=== PATIENT | female | born 2000 | race Caucasian/White ===

== ENCOUNTER 2022-02-13 09:42 | Outpatient (CLI) | payer OTHER, SELFPAY ==
[2022-02-12 16:06] LABS: Protein, Urine (Random) 6.5 mg/dL (<11.9); Protein:Creat Ratio 136 mg/g CRE (0-200)
[2022-02-12 16:11] LABS: Amphetamine Urine VISTA NEGATIVE (<1000 ng/mL); Barbiturate Urine VISTA NEGATIVE (< 200 ng/mL); Benzodiazepine Urine VISTA NEGATIVE (< 200 ng/mL); Cocaine Urine VISTA NEGATIVE (< 300 ng/mL); Ecstacy Urine VISTA NEGATIVE (< 500 ng/mL); Methadone Urine VISTA NEGATIVE (< 300 ng/mL); PCP Urine VISTA NEGATIVE (< 25 ng/mL); THC Urine VISTA NEGATIVE (< 50 ng/mL); Vista UDS pH Range 6
[2022-02-14 22:07] LABS: Chlamydia By Nucleic Acid AMP Negative (Negative)
[2022-02-14 22:14] LABS: Gonococcus By Nucleic Acid AMP Negative (Negative)
== END 2022-02-13 23:59 | disposition home or self-care (01) ==
LOC: LABSPEC 09:43
PROVIDERS: Visit Provider Obstetrics & Gynecology
DX: O09.299 Supervision of pregnancy with other poor reproductive or obstetric history, unspecified trimester (principal); Z3A.00 Weeks of gestation of pregnancy not specified
CPT/HCPCS: 80307; 82570; 84156; 87086; 87088; 87491; 87591

== ENCOUNTER → 2022-03-12 | Outpatient (CLI) | payer OTHER, SELFPAY ==
[2022-03-12 11:29] LABS: Absolute Lymphocyte Count 2.43 X10^3/uL (0.83-4.51); Absolute Neutrophil Count 6.6 X10^3/uL (2.0-7.7); Basophil# 0.04 X10^3/uL; Basophil% 0.4 % (0-1); Eosinophil# 0.13 X10^3/uL; Eosinophils% 1.3 % (0-5); Lymphocyte # 2.43 X10^3/ul (0.83-4.51); Lymphocyte % 24.7 % (19-41); Mean Corp Hgb Conc 32.6 g/dL (32-36); Mean Corpuscular Hgb 26.9 pg (27.0-32.0); Mean Corpuscular Volume 82.5 fL (81-99); Mean Platelet Vol. 9.4 fl (6.2-12.0); Monocyte% 6.1 % (0-10); NRBC Flagged by Analyzer 0 % (0-5); Neutrophil # 6.59 X10^3/uL (2.7-7.7); Neutrophil % 67.1 % (47-70); Platelet Count 294 K/mm3 (150-450); RBC Distribution Width CV 14.9 % (11.6-14.6); RBC Distribution Width SD 45.6 fl (35.1-43.9); Red Blood Count 5.21 M/mm3 (4.2-5.4); White Blood Count 9.8 K/mm3 (4.4-11.0)
[2022-03-12 11:58] LABS: ALB/GLOB Ratio 0.9 RATIO (0.9-2.4); AST(SGOT) 10 U/L (15-37); Alanine Aminotransfer ALT/SGPT 17 U/L (13-56); Albumin, Serum 3.4 g/dL (3.2-5.0); Alkaline Phosphatase 64 U/L (45-117); Anion Gap 9 (5-15); BUN 10 mg/dL (7-18); Calcium,Total 9.2 mg/dL (8.5-10.1); Chloride 108 mmol/L (98-107); Creatinine, Serum 0.66 mg/dL (0.55-1.02); EST Glomerular Filtration Rate 119 mL/min (>60); Est Glom Filt Rate - Afr Amer 143 mL/min (>60); Globulin 3.9 g/dL (2.2-4.2); Glucose 102 mg/dL (74-106); Glucose Challenge Gest 1H 50g 102 mg/dL (70-140); Potassium 3.4 mmol/L (3.5-5.1); Protein, Total 7.3 g/dL (6.4-8.2); Sodium Level 139 mmol/L (136-145)
[2022-03-12 12:25] LABS: NATERA MAILED SPECIMEN
[2022-03-12 12:36] LABS: HIV - WCH Non-Reactive (Nonreactive); Hepatitis B Surface Antigen Non-Reactive (Nonreactive); Hepatitis C Antibody Non-Reactive (Nonreactive); Rubella IgG Reactive (Nonreactive); Syphilis Antibodies Non-reactive
== END | disposition home or self-care (01) ==
LOC: PAVLAB 10:37
PROVIDERS: Referring Provider Obstetrics & Gynecology; Visit Provider Obstetrics & Gynecology
DX: Z34.81 Encounter for supervision of other normal pregnancy, first trimester (principal)
CPT/HCPCS: 36415; 80053; 82950; 85025; 86703; 86762; 86780; 86803; 86850; 86900; 86901; 87340

== ENCOUNTER → 2022-05-09 | Outpatient (CLI) | payer OTHER, SELFPAY ==
[2022-05-09 11:15] LABS: Protein, Urine (Random) 26.9 mg/dL (<11.9); Protein:Creat Ratio 167 mg/g CRE (0-200)
== END | disposition home or self-care (01) ==
PROVIDERS: Visit Provider Nurse Practitioner Women's Health
DX: O09.299 Supervision of pregnancy with other poor reproductive or obstetric history, unspecified trimester (principal)
CPT/HCPCS: 82570; 84156

== ENCOUNTER → 2022-06-27 | Outpatient (CLI) | payer OTHER, SELFPAY ==
[2022-06-27 08:56] LABS: Absolute Lymphocyte Count 2.68 X10^3/uL (0.83-4.51); Absolute Neutrophil Count 8.4 X10^3/uL (2.0-7.7); Basophil# 0.04 X10^3/uL; Basophil% 0.3 % (0-1); Eosinophil# 0.13 X10^3/uL; Eosinophils% 1.1 % (0-5); Hematocrit 35.1 % (37-47); Lymphocyte # 2.68 X10^3/ul (0.83-4.51); Lymphocyte % 22.4 % (19-41); Mean Corp Hgb Conc 34.2 g/dL (32-36); Mean Corpuscular Hgb 28.8 pg (27.0-32.0); Mean Corpuscular Volume 84.4 fL (81-99); Mean Platelet Vol. 8.9 fl (6.2-12.0); Monocyte# 0.59 X10^3/uL; Monocyte% 4.9 % (0-10); NRBC Flagged by Analyzer 0 % (0-5); Neutrophil # 8.36 X10^3/uL (2.7-7.7); Neutrophil % 70.1 % (47-70); Platelet Count 287 K/mm3 (150-450); Red Blood Count 4.16 M/mm3 (4.2-5.4); White Blood Count 11.9 K/mm3 (4.4-11.0)
[2022-06-27 09:28] LABS: Glucose Challenge Gest 1H 50g 164 mg/dL (70-140)
== END | disposition home or self-care (01) ==
LOC: PAVLAB 08:28
PROVIDERS: Referring Provider Nurse Practitioner Women's Health; Visit Provider Nurse Practitioner Women's Health
DX: Z34.90 Encounter for supervision of normal pregnancy, unspecified, unspecified trimester (principal)
CPT/HCPCS: 36415; 82950; 85025

== ENCOUNTER → 2022-07-05 | Outpatient (CLI) | payer OTHER, SELFPAY ==
[2022-07-05 07:44] LABS: Glucose GTT-Gestation. Fasting 73 mg/dL (<105)
[2022-07-05 08:51] LABS: Glucose GTT-Gestational 1 Hr 185 mg/dL (<190)
[2022-07-05 10:07] LABS: Glucose GTT-Gestational 2 Hr 184 mg/dL (<165)
[2022-07-05 10:53] LABS: Glucose GTT-Gestational 3 Hr 138 L (<145)
== END | disposition home or self-care (01) ==
LOC: LAB 06:58
PROVIDERS: Referring Provider Nurse Practitioner Women's Health; Visit Provider Nurse Practitioner Women's Health
DX: Z13.1 Encounter for screening for diabetes mellitus (principal)
CPT/HCPCS: 36415; 82951; 82952

== ENCOUNTER 2022-07-18 15:25 | Outpatient (CLI) | payer OTHER, SELFPAY ==
[2022-07-18 15:45] VITALS: BP 120/84; PULSE 105; TEMP 37
[2022-07-18 15:51] VITALS: BMI 34.2
[2022-07-18 16:07] LABS: Glucose, Dipstick Normal (Normal); Ketone-Dipstick Negative (Negative); Leukocyte Esterase-Dipstick 100 /ul (Negative); Nitrite-Dipstick Negative (Negative); Occult Blood-Urine Negative /ul (Negative); Protein-Dipstick Negative (Negative); Urine Bilirubin Dipstick Negative (Negative); Urine Urobilinogen Normal (Normal)
[2022-07-18 16:16] LABS: Color, Urine Yellow (Yellow); Urine Clarity Clear (Clear)
--- NOTE | 2022-07-18 17:16 | US_ITS ---
STUDY: ULTRASOUND OF THE FEMALE PELVIS - LIMITED REASON FOR EXAM: Female, 21 years old left quadrant pain. R/O complications of L ovary. -- uterus. -- -- OB does not want evaluation of fetus, only b/l adnexa TECHNIQUE: Transabdominal TECHNICAL QUALITY: Adequate. COMPARISON: None. FINDINGS: Gravid uterus not studied as per request. The right ovary measures 2.2 x 2.3 x 2.9 cm. There is no right ovarian cyst or ovarian mass. There is no visualized right adnexal mass or complex lesion. There is normal arterial and normal venous vascularity. The left ovary measures 3.1 x 2.4 x 3 cm. There is no left ovarian cyst or ovarian mass. There is no visualized left adnexal mass or complex lesion. There is normal arterial and normal venous vascularity. There is no fluid in the cul-de-sac. US/Pelvic (Non ) IMPRESSION: Limited study of the pelvis demonstrating normal bilateral ovaries Electronically Signed: Raimundo Goodwin MD at 19:24 EDT ,
--- NOTE | 2022-07-19 10:25 | OB.TRI.HP_ITS ---
HPI - General General Date of Admission: 07/18/22 HPI Narrative MARYSOL TAPIA, is a 21 F who presents to L&D at 30 weeks for left side pain from left of umbilicus and left upper side pain. She denies lof, vaginal bleeding, or dec fm. She thinks that she is having some staci sapp contr actions. Maternal Data Information KIRSTEN Calculator Estimated Delivery Date Method Current WG Current Estimate 09/26/22 Ultrasound #1 30w 1d Other Estimates 09/21/22 LMP (Certain) 30w 6d PFSH PFSH Home Medications prenat.vits,leroy,gym-[id number]-[id number] 1 tab PO DAILY 01/29/22 [History Last Taken Unknown] aspirin 81 mg chewable tablet 81 mg PO DAILY 07/05/22 [History Last Taken Unknown] blood sugar diagnostic (Accu-Chek Guide test strips) 07/12/22 [History Last Taken Unknown] blood-glucose meter (Accu-Chek Guide Me Glucose Meter) 07/12/22 [History Last Taken Unknown] docusate sodium 100 mg capsule (Colace) 100 mg PO BID 07/12/22 [History Last Taken Unknown] Allergy/AdvReac Type Severity Reaction Status Date / Time No Known Allergies Allergy Verified 07/12/22 10:48 Family History Father Diabetes Brother Cancer hogkins lymphoma Grandmother Diabetes Grandfather CVA (cerebral vascular accident) Myocardial infarction ALS (amyotrophic lateral sclerosis) Social History adopted: No household members: spouse and children number of children: 1 current occupational status: unemployed current occupation: [employer] pets and animals: No Smoking Status: Never smoker alcohol intake: never substance use type: does not use seatbelt use: always do you feel safe at home: Yes additional social history: Spouse:Lb- manager distribution center in [place] patient is a sahm History 2 Elective abortions Hx Para 1 Spontaneous abortions Hx # Term Pregnancies Ectopic pregnancies Hx # Pregnancies Multiple births # of living children Past Pregnancies Del. 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 Problem list reviewed and updated with the most current plan of care details and appropriate orders placed. Relevant counseling for the gestational age provided. Continue routine care and follow up unless otherwise noted in visit notes/problem list details OB Flowsheet Initial Weight: Not Recorded Date -?-?-?-?-?-?-?-?-?-?-?-?- EGA Weight BP Urine Prot -?-?-?-?-?-?-?-?-?-?-?-?- Glucose FHR FuHt Pres Dilation -?-?-?-?-?-?-?-?-?-?-?-?- Effaced St Visit Note 02/12/22 -?-?-?-?-?-?-?-?-?-?-?-?- 7w 5d 211 lb 110/88 -?-?-?-?-?-?-?-?-?-?-?-?- 160 -?-?-?-?-?-?-?-?-?-?-?-?- JV-CRL off by mo re then 5 days. new kirsten 09/26/22 pt had severe pre-e and delivered at 3 week early. She will start baby asa and have baseline pr:cr ration collected. 03/12/22 -?-?-?-?-?-?-?-?-?-?--?-?- 11w 5d 208 lb 6 oz 130/88 Nega tive -?-?-?-?-?-?-?-?-?-?-?-?- Negative 160 -?-?-?-?-?-?-?-?-?-?-?-?- JV- no cramping, bleeding or complaints. nipt drawn today. normal early glucola 04/11/22 -?-?-?-?-?-?-?-?-?-?-?-?- 16w 0d 210 lb 2 oz 118/72 Nega tive -?-?-?-?-?-?-?-?-?-?-?-?- Negative 158 -?-?-?-?-?-?-?-?-?-?-?-?- MH-No VB or cram ping. Denies concerns. Anatomy US 05/0305/09/22 -?-?-?-?-?-?-?-?-?-?-?-?- 20w 0d 208 lb 4 oz 126/78 Trac e -?-?-?-?-?-?-?-?-?-?-?-?- Negative 143 -?-?-?-?-?-?-?-?-?-?-?-?- MH-No VB, LOF. F M noted. States yesterday was sitting on floor painting and had slight headache, BP 138/89 and briefly saw sparkles and relieved with rest and fluids. Urine sent PC ratio. Reviewed home monitoring 06/05/22 -?-?-?-?-?-?-?-?-?-?-?-?- 23w 6d 211 lb 2 oz 122/80 Nega tive -?-?-?-?-?-?-?-?-?-?-?-?- Negative 148 -?-?-?-?-?-?-?-?-?-?-?-?- MH-No VB, LOF. G ood FM. Denies concerns. 07/05/22 -?-?-?-?-?-?-?-?-?-?-?-?- 28w 1d 210 lb 126/72 Negative -?-?-?-?-?-?-?-?-?-?-?-?- Negative 145 29 -?-?-?-?-?-?-?-?-?-?-?-?- SM- reviewed lab results. no vb lof good fm no regular ctx 07/16/22 -?-?-?-?-?-?-?-?-?-?-?-?- 29w 5d 208 lb 108/82 Negative -?-?-?-?-?-?-?-?-?-?-?-?- Negative 145 30 -?-?-?-?-?-?-?-?-?-?-?-?- SM- no vb lof go od fm no regular ctx BS reviewed and nl ROS Constitutional Constitutional: Reports systems reviewed and no addt'l complaints, except as documented Gastrointestinal Gastrointestinal: Denies bloating, constipation, cramping, diarrhea, nausea or vomiting Genitourinary Genitourinary: Reports other Details: Denies vaginal odor, vaginal bleeding, or vaginal discharge ; Denies difficulty urinating or flank pain Physical Exam HEENT normocephalic Resp normal respiratory effort and normal air movement no CVA tenderness Manual OB Exam: other closed cervix per nurse exam Uterus Palpation: Negative for uterus tender Amniotic Fluid: other Extremity normal to inspection General Extremity: edema bilateral (trace ) NST FHR Rate Baby A Baseline: 140 Variability:: Moderate Accelerations:: 15 x 15 Decelerations:: None NST Reactive:: Yes FHR Category:: Category I Assessment & Plan (1) Gestational diabetes mellitus (GDM): COMMENT: diet controlled. s/pp endocrine cs. (2) Short interval between pregnancies affecting , antepartum: COMMENT: Del 06/2021 in [facility], TDAP 04/25/21 (3) Supervision of high risk , antepartum: COMMENT: PRR KIRSTEN: 09/21/22, girl, Suzy PC:Sergey Spouse:Lb (4) History of pre-eclampsia in prior , currently : COMMENT: IOL at 37 wk/Kash Elizabeth Pre E labs at [facility] baby asa daily Urine P/C ration normal 05/09/22 (5) : QUALIFIERS: Weeks of gestation: 29 weeks Qualified Code(s): Z3A.29 - 29 weeks gestation of COMMENT: NIPT low risk, carrier neg. . Anatomy US normal PLAN: Plan normal pelvic ultrasound and no signs of labor. suspect musculoskeletal pain an staci sapp contractions Charges/Coding Multi Select Codes Visit Charges Office Visit/Consults: 43668 OV L3 Est Urinary/Genital Urinary/Genital CPT Codes: 15184-68 non-stress test Interp
== END 2022-07-18 18:18 | disposition home or self-care (01) ==
LOC: WPOUT 15:31 → WP 15:32
PROVIDERS: Visit Provider Obstetrics & Gynecology
DX: O24.419 Gestational diabetes mellitus in pregnancy, unspecified control (principal); Z3A.29 29 weeks gestation of pregnancy; O26.23 Pregnancy care for patient with recurrent pregnancy loss, third trimester
CPT/HCPCS: 59025; 59050; 76856; 81002; 87086; 87088; 93976; 99218; G0378

== ENCOUNTER → 2022-08-13 | Outpatient (CLI) | payer OTHER, SELFPAY | END | disposition home or self-care (01) | LOC: LABSPEC 12:12 | PROVIDERS: Visit Provider Registered Nurse | DX: O23.40 Unspecified infection of urinary tract in pregnancy, unspecified trimester (principal) | CPT/HCPCS: 87086; 87088 ==

== ENCOUNTER 2022-08-27 13:40 | Inpatient (IN) | payer OTHER, SELFPAY ==
[2022-08-27] VITALS (55 sets, daily range): BP systolic 112–144; BP diastolic 63–92; PULSE 78–113; TEMP 36.4–37.1; O2SAT 94–100; BMI 34.8
--- NOTE | 2022-08-27 10:51 | NURSING ---
Dr Loaiza at bedside examing pt. orders given
[2022-08-27 11:06] LABS: Hematocrit 40.9 % (37-47); Hemoglobin 13.2 g/dL (12.0-15.0); Mean Corp Hgb Conc 32.3 g/dL (32-36); Mean Corpuscular Hgb 26.1 pg (27.0-32.0); Mean Corpuscular Volume 80.8 fL (81-99); Mean Platelet Vol. 9.4 fl (6.2-12.0); Platelet Count 258 K/mm3 (150-450); RBC Distribution Width SD 43.2 fl (35.1-43.9); Red Blood Count 5.06 M/mm3 (4.2-5.4); White Blood Count 12.2 K/mm3 (4.4-11.0)
[2022-08-27] MEDS: 0.9% Saline Lock 10 ML Syringe IV (12:05)
[2022-08-27 12:47] LABS: Protein, Urine (Random) 21.5 mg/dL (<11.9); Protein:Creat Ratio 342 mg/g CRE (0-200)
[2022-08-27 13:20] LABS: AST(SGOT) 13 U/L (15-37); Alanine Aminotransfer ALT/SGPT 21 U/L (13-56); Creatinine, Serum 0.77 mg/dL (0.55-1.02); EST Glomerular Filtration Rate 100 mL/min (>60); Est Glom Filt Rate - Afr Amer 121 mL/min (>60); Uric Acid 6.8 mg/dL (2.6-6.0)
--- NOTE | 2022-08-27 13:56 | HP.PCM.OB_ITS ---
HPI - General General Date of Admission: 08/27/22 HPI Narrative MARYSOL TAPIA, is a 21 y/o @ 35 weeks 5 days who presents to L&D with the complaint of visual changes and on and off headaches. She has a history of pre- eclampsia and states that she feels the same way she felt last when she was admitted for pre-eclampsia. She denies right upper quadrant pain or swelling in extremities. Her pr: cr ratio was 340 and uric acid was elevated at 6.8, however blood pressures have been trending down from mas 145/92 in office down to 112/70's with rest on L&D. Based on her severe features of headaches and visual changes + proteinuria and labile bp's the decision was made to induce labor. This was discussed with MFCari and with the patient Maternal Data Information KIRSTEN Calculator Estimated Delivery Date Method Current WG Current Estimate 09/26/22 Ultrasound #1 35w 5d Other Estimates 09/21/22 LMP (Certain) 36w 3d PFSH PFSH Home Medications prenat.vits,leroy,[id number]-rezs-abhys 1 tab PO DAILY 01/29/22 [History Last Taken 08/26/22 21:00] aspirin 81 mg chewable tablet 81 mg PO DAILY 07/05/22 [History Last Taken 08/26/22 21:00] blood sugar diagnostic (Accu-Chek Guide test strips) 07/12/22 [History Last Taken Unknown] blood-glucose meter (Accu-Chek Guide Me Glucose Meter) 07/12/22 [History Last Taken Unknown] docusate sodium 100 mg capsule (Colace) 100 mg PO BID 07/12/22 [History Last Taken 08/26/22 21:00] Allergy/AdvReac Type Severity Reaction Status Date / Time No Known Allergies Allergy Verified 08/27/22 10:42 Family History Father Diabetes Brother Cancer hogkins lymphoma Grandmother Diabetes Grandfather CVA (cerebral vascular accident) Myocardial infarction ALS (amyotrophic lateral sclerosis) Social History adopted: No household members: spouse and children number of children: 1 current occupational status: 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 pain management options preferred: epidural cut cord/dad catch: will cut the cord :yes PP control planned: condoms/withdraw discussed possible routes of delivery and associated risks: [] special requests: [] Plans Covid status: discussed Flu vaccine: discussed Tdap vaccine: given Rhogam: na LARC form signed: completed. movement and labor precautions reviewed. Problem list reviewed and updated with the most current plan of care details and appropriate orders placed. Relevant counseling for the gestational age provided. Continue routine care and follow up unless otherwise noted in visit notes/problem list details OB Flowsheet Initial Weight: Not Recorded Date -?-?-?-?-?-?-?-?-?-?-?-?- EGA Weight BP Urine Prot -?-?-?-?-?-?-?-?-?-?-?-?- Glucose FHR FuHt Pres Dilation -?-?-?-?-?-?-?-?-?-?-?-?- Effaced St Visit Note 02/12/22 -?-?-?-?-?-?-?-?-?-?-?-?- 7w 5d 211 lb 110/88 -?-?-?-?-?-?-?-?-?-?-?-?- 160 -?-?-?-?-?-?-?-?-?-?-?-?- JV-CRL off by mo re then 5 days. new kirsten 09/26/22 pt had severe pre-e and delivered at 3 week early. She will start baby asa and have baseline pr:cr ration collected. 03/12/22 -?-?-?-?-?-?-?-?-?-?-?-?- 11w 5d 208 lb 6 oz 130/88 Nega tive -?-?-?-?-?-?-?-?-?-?-?-?- Negative 160 -?-?-?-?-?-?-?-?-?-?-?-?- JV- no cramping, bleeding or complaints. nipt drawn today. normal early glucola 04/11/22 -?-?-?-?-?-?-?-?-?-?-?-?- 16w 0d 210 lb 2 oz 118/72 Nega tive -?-?-?-?-?-?-?-?-?-?-?-?- Negative 158 -?-?-?-?-?-?-?-?-?-?-?-?- MH-No VB or cram ping. Denies concerns. Anatomy US 05/0305/09/22 -?-?-?-?-?-?-?-?-?-?-?-?- 20w 0d 208 lb 4 oz 126/78 Trac e -?-?-?-?-?-?-?-?-?-?-?-?- Negative 143 -?-?-?-?-?-?-?-?-?-?-?-?- MH-No VB, LOF. F M noted. States yesterday was sitting on floor painting and had slight headache, BP 138/89 and briefly saw sparkles and relieved with rest and fluids. Urine sent PC ratio. Reviewed home monitoring 06/05/22 -?-?-?-?-?-?-?-?-?-?-?-?- 23w 6d 211 lb 2 oz 122/80 Nega tive -?-?-?-?-?-?-?-?-?-?-?-?- Negative 148 -?-?-?-?-?-?-?-?-?-?-?-?- -No VB, LOF. G ood FM. Denies concerns. 07/05/22 -?-?-?-?-?-?-?-?-?-?-?-?- 28w 1d 210 lb 126/72 Negative -?-?-?-?-?-?-?-?-?-?-?-?- Negative 145 29 -?-?-?-?-?-?-?-?-?-?-?-?- SM- reviewed lab results. no vb lof good fm no regular ctx 07/16/22 -?-?-?-?-?-?-?-?-?-?-?-?- 29w 5d 208 lb 108/82 Negative -?-?-?-?-?-?-?-?-?-?-?-?- Negative 145 30 -?-?-?-?-?-?-?-?-?-?-?-?- SM- no vb lof go od fm no regular ctx BS reviewed and nl 08/01/22 -?-?-?-?-?-?-?-?-?-?-?-?- 32w 0d 206 lb 122/84 Negative -?-?-?-?-?-?-?-?-?-?-?-?- Negative 155 32 33 -?-?-?-?-?-?-?-?-?-?-?-?- JV- no lof vagin al bleeding, or dec fm. glucose levels well controlled. States have had 4 spikes of 130's needs uti DIOMEDES next visit. 08/13/22 -?-?-?-?-?-?-?-?-?-?-?-?- 33w 5d 206 lb 6 oz 122/82 Nega tive -?-?-?-?-?-?-?-?-?-?-?-?- Negative 160 33 Cephalic -?-?-?-?-?-?-?-?-?-?-?-?- LC- no lof,vb,ct x. active fetus. urine cx repeated. growth scan ordered for 36 weeks. glucose well controlled on diet. tdap today. 08/27/22 -?-?-?-?-?-?-?-?-?-?-?-?- 35w 5d 209 lb 133/92 Negative -?-?-?-?-?-?-?-?-?-?-?-?- Negative 140 35 Breech -?-?--?-?-?-?-?-?-?-?-?-?- LC-no lof,vb,ctx . having headache x2 weeks, worsened last night. BP at home 130/90s with visual changes. sending to L&D for PEC work up. Notes Visit Date: 08/27/22 Last Updated by: Verenice Pappas CNM 132/89 on repeat ROS Constitutional Constitutional: Denies change in weight, fatigue, fever(s), headache(s), poor appetite or weakness Eyes Eyes: Denies blurry vision, change in vision, seeing flashes or spots in vision ENT HEENT: Denies dizziness, headache(s), loss taste/smell or sore throat Cardiovascular Cardiovascular: Denies chest pain, dizziness, dyspnea, irregular heart rhythm, leg edema, palpitations, rapid heart rate or vomiting Respiratory/Chest Respiratory/Chest: Denies chest tightness, cough, dyspnea or breast pain Gastrointestinal Gastrointestinal: Denies abdominal pain, anorexia, constipation, cramping, diarrhea, hemorrhoids, vomiting or weight changes Genitourinary Genitourinary: Denies dysuria, flank pain, genital lesions, genital pain, urinary frequency or urinary urgency Musculoskeletal Musculoskeletal: Denies back pain, difficulty walking, joint pain, limited range of motion, muscle cramps or numbness Integumentary Integumentary: Denies lesions or unusual bruising Neurologic Neurologic: Denies abnormal movements, abnormal speech, dizziness, numbness, seizure-like activity or syncope Psychiatric Psychiatric: Denies anxiety, behavioral changes, change in appetite, change in libido, cognitive impairment, confusion, depression, difficulty concentrating, hallucinations or suicidal thoughts Endocrine Endocrinology: Denies excessive sweating, polydipsia or polyuria Hematologic/Lymphatic Hematologic/Lymphatic: Denies easy bleeding, easy bruising or lymphadenopathy Allergic/Immunologic Allergic/Immunologic: Denies itchy eyes, lip swelling, seasonal rhinorrhea, rhinitis, throat swelling, tongue swelling, eczemia, wheezing or asthma Vital Signs Vital Signs Vital Signs: 08/27/22 10:40 08/27/22 10:40 08/27/22 10:40 Temperature Temperature Source Temporal Pulse Rate 107 H Blood Pressure BP Systolic BP Diastolic Pulse Ox 97 08/27/22 10:40 08/27/22 10:49 08/27/22 10:49 Temperature 97.7 F L Temperature Source Pulse Rate 100 Blood Pressure 131/86 H BP Systolic 131 BP Diastolic 86 Pulse Ox 08/27/22 10:59 08/27/22 10:59 08/27/22 11:09 Temperature Temperature Source Pulse Rate 97 Blood Pressure 120/73 121/75 H BP Systolic 120 121 BP Diastolic 73 75 Pulse Ox 08/27/22 11:09 08/27/22 11:20 08/27/22 11:20 Temperature Temperature Source Pulse Rate 91 97 Blood Pressure 132/84 H BP Systolic 132 BP Diastolic 84 Pulse Ox 08/27/22 11:29 08/27/22 11:29 08/27/22 11:40 Temperature Temperature Source Pulse Rate 97 Blood Pressure 134/81 H 120/79 BP Systolic 134 120 BP Diastolic 81 79 Pulse Ox 08/27/22 11:40 08/27/22 11:49 08/27/22 11:49 Temperature Temperature Source Pulse Rate 93 86 Blood Pressure 124/79 H BP Systolic 124 BP Diastolic 79 Pulse Ox 08/27/22 11:59 08/27/22 11:59 08/27/22 12:10 Temperature Temperature Source Pulse Rate 86 Blood Pressure 112/72 128/75 H BP Systolic 112 128 BP Diastolic 72 75 Pulse Ox 08/27/22 12:10 08/27/22 12:19 08/27/22 12:19 Temperature Temperature Source Pulse Rate 84 96 Blood Pressure 116/69 BP Systolic 116 BP Diastolic 69 Pulse Ox 08/27/22 12:29 08/27/22 12:29 08/27/22 12:39 Temperature Temperature Source Pulse Rate 90 Blood Pressure 113/70 120/72 BP Systolic 113 120 BP Diastolic 70 72 Pulse Ox 08/27/22 12:39 Temperature Temperature Source Pulse Rate 82 Blood Pressure BP Systolic BP Diastolic Pulse Ox Weight Weight: 209 lb 3.499 oz Body Mass Index (BMI) 34.8 Physical Exam Const alert, oriented x3, no apparent distress and healthy appearing General Appearance: cooperative; Negative for anxious HEENT normocephalic Face and Sinus: normal facial exam Eyes EOMs intact bilaterally and no scleral icterus General Eye: normal appearance of both eyes Neck full ROM and supple Lymph Lymphatic: no lymphadenopathy noted Chest Chest: abnormal inspection of the chest Resp normal respiratory effort Effort and Inspection: able to speak in complete sentences Cardio regular rate GI soft to palpation and non-tender Inspection: gravid Palpation: soft; Negative for tender external exam normal Manual OB Exam: dilated 2.5, effaced 80, station -3 and other consistency is soft and the cervix is anterior Back/Spine no CVA tenderness Extremity normal to inspection, full ROM and no clubbing, cyanosis or edema General Extremity: Negative for calf tenderness or edema Skin Lesions: no lesions Rashes: no rashes Psych mental status grossly normal Labs Labs Labs: Blood Type O POSITIVE Antibody Screen NEGATIVE Hct 40.9 % (37-47) Hgb 13.2 g/dL (12.0-15.0) Syphilis Total Ab Non-reactive Rubella IgG Antibody Reactive (Nonreactive) Hep Bs Antigen Non-Reactive (Nonreactive) Chlamydia DNA ([facility]AYLEY) Negative (Negative) Neisseria gonorrhoeae DNA ([facility]LEY) Negative (Negative) HIV 1&2 Antibody Non-Reactive (Nonreactive) Glucose 1 Hr 50 gm 164 mg/dL (70-140) H Assessment & Plan (1) Urinary tract infection affecting : COMMENT: Treated with antibiotic, retested on 08/13 (2) Gestational diabetes mellitus (GDM): COMMENT: diet controlled. s/pp endocrine cs. (3) Short interval between pregnancies affecting , antepartum: COMMENT: Del 06/2021 in [facility], TDAP 04/25/21 (4) Supervision of high risk , antepartum: COMMENT: PRR KIRSTEN: 09/21/22, girl, Suzy PC:Sergey Spouse:Lb (5) History of pre-eclampsia in prior , currently : COMMENT: IOL at 37 wk/ [place] Pre E labs at [facility] baby asa daily Urine P/C ration normal 05/09/22 (6) : QUALIFIERS: Weeks of gestation: 35 weeks Qualified Code(s): Z3A.35 - 35 weeks gestation of COMMENT: NIPT low risk, carrier neg. . Anatomy US normal (7) Severe pre-eclampsia: PLAN: Patient presents IOL, plan management for with pitocin/AROM. Pain management: plans epidural. GBS pending. unknown, will start pcn. Management of any complications: pre-eclapsia with severe features I have reviewed the [facility] and made any clinically relevant updates.
[2022-08-27 14:45] LABS: Bedside Glucose 62 mg/dL (74-106)
[2022-08-27] MEDS: Lactated Ringers 1,000 ML 50 ML IV (15:29)
[2022-08-27 15:37] LABS: Group B Strep DNA By PCR Negative (Negative); Internal Control PASS; Probe Check PASS; Specimen Processing Control PASS
[2022-08-27] MEDS: Oxytocin 15 Units/NS 250ml 15 UNITS/250 ML IV.SOLN 2 UNITS IV (15:40)
[2022-08-27] MEDS: Betamethasone/Betamethasone 30 MG/5 ML Vial 12 MG IM (15:46)
[2022-08-27 16:30] LABS: Bedside Glucose 140 mg/dL (74-106)
[2022-08-27] MEDS: Acetaminophen 500 MG Tablet PO (16:45)
[2022-08-27 17:30] LABS: Bedside Glucose 120 mg/dL (74-106)
[2022-08-27] MEDS: LACTATED RINGERS 500 ML 999 ML IV (18:15)
[2022-08-27] MEDS: fentaNYL-bupivacaine (epidural) 100 ML BAG EPIDURAL (19:21)
--- NOTE | 2022-08-27 19:30 | PCM.PN.BLA ---
Progress Note pt is comfortable with epidural. She consents to AROM current tracing: FHT: 150's- 160's Moderate variability reactive no decelerations category I tracing [place]: q 2-3 min Contractions AROM with clear fluid cx: /-1 reviewed tracing abnormalities since last note: new baseline change from 150's to 160's A/P: pre-eclampsia with severe features -bp's table -continue pitocin for induction -anticipate tonight.
[2022-08-27 19:51] LABS: Bedside Glucose 97 mg/dL (74-106)
--- NOTE | 2022-08-27 20:17 | NURSING ---
In further conversation pt expressed she used formula with her son and if necessary plans to use formula with this as well.
[2022-08-27 21:35] LABS: Bedside Glucose 92 mg/dL (74-106)
[2022-08-27 21:45] LABS: Bedside Glucose 102 mg/dL (74-106)
--- NOTE | 2022-08-27 23:08 | EX.PCM.OBRPT ---
Assessment & Plan (1) Severe pre-eclampsia: (2) : QUALIFIERS: Weeks of gestation: 35 weeks Qualified Code(s): Z3A.35 - 35 weeks gestation of COMMENT: NIPT low risk, carrier neg. . Anatomy US normal (3) History of pre-eclampsia in prior , currently : COMMENT: IOL at 37 wk/Kash Elizabeth Pre E labs at [facility] baby asa daily Urine P/C ration normal 05/09/22 (4) Supervision of high risk , antepartum: COMMENT: PRR KIRSTEN: 09/21/22, girl, Suzy PC:Sergey Spouse:Lb (5) Short interval between pregnancies affecting , antepartum: COMMENT: Del 06/2021 in [facility], TDAP 04/25/21 (6) Gestational diabetes mellitus (GDM): COMMENT: diet controlled. s/pp endocrine cs. (7) Urinary tract infection affecting : COMMENT: Treated with antibiotic, retested on 08/13 (8) Severe pre-eclampsia: Maternal Data Information KIRSTEN Calculator Estimated Delivery Date Method Current WG Current Estimate 09/26/22 Ultrasound #1 35w 5d Other Estimates 09/21/22 LMP (Certain) 36w 3d Final KIRSTEN: 09/26/22 Final KIRSTEN Source: US <20 weeks Gestational age: 35 weeks 5 days Doctor Who Attended Delivery: Tatum Benites Vaginal Delivery Maternal Presentation Maternal Presentation: Medically Indicated Induction Type of Induction: Pitocin and Amniotomy Operative Information Date of Procedure: 08/27/22 Pre-Operative Diagnosis: @ 35 weeks 5 days, pre-eclampsia with severe features Post-Operative Diagnosis: @ 35 weeks 5 days, pre-eclampsia with severe features Type of Anesthesia: Epidural Drain: Garrido to straight drain Estimated Blood Loss: 100cc Findings Description of Procedure: Patient began pushing and delivered the head in the ASUNCION presentation. The head was delivered atraumatically. The anterior and posterior shoulders delivered without complication followed by the rest of the infant and the infant was placed on the maternal abdomen. Delayed cord clamping was employed for approximately 60 seconds. Cord was clamped and cut and gentle traction was applied to the cord and the placenta delivered spontaneously immediately following it was noted to be intact with three-vessel cord. The perineum and vagina were inspected and noted to have a 1st degree laceration repaired with a 3-0 vicryl rapide suture. EBL was 100 cc. Patient and tolerated delivery well. Presentation: Vertex Amniotic Membrane Rupture Type: Artificial Time of Membrane Rupture: 7:00pm Amniotic Fluid Description: Clear Placenta Disposition: [facility] Cord Vessel Description: 3 Vessels Cord Entanglement: None Infant A Gender: Female (1 minute): 9 (5 minute): 9 Delayed Cord Clamping: Yes Post Vaginal Delivery Medications Given After Delivery: IV Pitocin Episiotomy Description: None Laceration: 1st degree Complication Complications: None Multi Select Codes Urinary/Genital Urinary/Genital CPT Codes: 39009 Vaginal Delivery [facility]
--- NOTE | 2022-08-27 23:13 | DCINST_ITS ---
Discharge Instructions Diet Discharge Diet: No restrictions Activity Discharge Activity: Return to Normal Activity, May Not Drive (while taking narcotic pain medications.) and May Shower May resume sexual activity in: 4-6 weeks Dressing / Incision Call your doctor if your incision/area has: Continuous Slow Oozing, Sudden Increased Bleeding, Increased Pain/ Swelling, Increased Redness and Foul Smelling Discharge Follow Up Care Please Follow Up With: Tayla Khan, When: Call [phone] to make an appointment with your doctor in 6 weeks. If you had elevated blood pressure or 4th degree laceration, you will need to be seen in 2 weeks. Test Results: Test results from this visit will be discussed in further detail at your follow- up appointment, if applicable. Discharge Plan Admission Admit Date/Time: 08/27/22 13:40 Attending Provider: Tayla Khan Primary Care Provider: Care PhysicianLorie Primary Discharge Orders/Prescriptions Prescriptions: No Action prenat.vits,leroy,bim-atex-xefto Tablet 1 tab PO DAILY aspirin 81 mg tablet,chewable 81 mg PO DAILY (DME) Accu-Chek Guide test strips Strip See Rx Instructions .Route Rx Instructions: As directed (DME) blood-glucose meter [Accu-Chek Guide Me Glucose Mtr] Misc See Rx Instructions .Route Rx Instructions: As directed docusate sodium [Colace] 100 mg capsule 100 mg PO BID Referrals / Follow Up: Care Physician,No Primary [Primary Care Provider] -
[2022-08-28] VITALS (20 sets, daily range): BP systolic 101–122; BP diastolic 60–80; PULSE 64–101; RESP 12–18; TEMP 35.9–36.9; O2SAT 98–100
[2022-08-28 00:35] LABS: Bedside Glucose 96 mg/dL (74-106)
[2022-08-28] MEDS: 0.9% Saline Lock 10 ML Syringe IV (00:56)
[2022-08-28] MEDS: Ibuprofen 600 MG Tablet PO ×3 (05:32→18:11)
[2022-08-28] MEDS: Benzocaine/Lanolin/Aloe Vera 1 SPRAY EACH TOPICAL (05:32)
--- NOTE | 2022-08-28 08:00 | PN.OBGYN_ITS ---
Subjective Subjective Patient doing well without complaints. Tolerating PO. Ambulating and voiding without difficulty. Feeding well. Denies chest pain, shortness of breath, calf pain/swelling, fevers, chills, lightheadedness. Objective Data Objective Data Vital Signs: Vital Signs Temp Pulse Resp BP Pulse Ox O2 Del Method 96.7 F L 68 16 117/76 98 Room Air 08/28/22 07:55 08/28/22 07:55 08/28/22 07:55 08/28/22 07:55 08/28/22 07:55 08/28/22 07:55 Oxygen Delivery Method Room Air Weight: 209 lb 3.499 oz Body Mass Index (BMI) 34.8 Intake & Output: Intake and Output for Last 24 Hours 08/26/22 08/27/22 08/28/22 23:59 23:59 23:59 Intake Total 1795.42 / 1795.42 Output Total 1600 / 1600 Balance 1795.42 / 1795.42 -1600 / -1600 Lab / Micro Data Result Diagrams: 08/27/22 10:55 08/27/22 10:55 Labs: Laboratory Results - last 24 hr 08/27/22 10:50: Blood Type O POSITIVE, Antibody Screen NEGATIVE 08/27/22 10:55: WBC 12.2 H, RBC 5.06, Hgb 13.2, Hct 40.9, MCV 80.8 L, MCH 26.1 L , MCHC 32.3, RDW Std Deviation 43.2, RDW Coeff of Jeronimo 15.0 H, Plt Count 258, MPV 9.4 08/27/22 10:55: Creatinine 0.77, Estim Creat Clear Calc 104.00, Est GFR (MDRD) Af Amer 121, Est GFR (MDRD) Non-Af 100, Uric Acid 6.8 H, AST 13 L, ALT 21 08/27/22 11:02: U Random Total Protein 21.5 H, Urine Creatinine 62.90, Protein/Creatinin Ratio 342 H 08/27/22 14:20: Group B Strep DNA Negative, Specimen Comment Not Reportable 08/27/22 14:22: POC Glucose 62 L 08/27/22 16:06: POC Glucose 140 H 08/27/22 17:09: POC Glucose 120 H 08/27/22 19:21: POC Glucose 97 08/27/22 20:22: POC Glucose 92 08/27/22 21:22: POC Glucose 102 08/27/22 22:16: POC Glucose 96 Micro: Microbiology 08/27/22 14:20 Nasal Secretion SARS-CoV-2 Antigen (Rapid) - Final Physical Exam Const alert and oriented x3 HEENT normocephalic Eyes PERRL Neck full ROM Resp normal respiratory effort GI soft to palpation GI Narrative: FF below U Assessment & Plan (1) Vaginal delivery: COMMENT: 08/27/22 Suzy, IOL preE. JV (2) Severe pre-eclampsia: (3) Gestational diabetes mellitus (GDM): COMMENT: diet controlled. s/pp endocrine cs. PLAN: Plan s/p PPD # 1 1. routine post delivery care 2. breast feeding- support given 3. rh positive 4. rubella immune 5. blood pressure stable glucose stable
[2022-08-28] MEDS: Senna/Docusate Sodium 1 Tablet PO (11:37)
[2022-08-29] MEDS: Ibuprofen 600 MG Tablet PO ×3 (00:25→22:20)
[2022-08-29 02:14] VITALS: BP 115/73; PULSE 80; RESP 16; TEMP 36.1; O2SAT 99
[2022-08-29 09:02] VITALS: BP 120/80; PULSE 88; RESP 16; TEMP 36.7
--- NOTE | 2022-08-29 09:55 | PCM.PN.OB ---
Subjective Subjective Patient doing well without complaints. Tolerating PO. Ambulating and voiding without difficulty. Feeding well, currently nursing, pumping and supplementing denies breast pain/discomforts. Denies chest pain, shortness of breath, calf pain/swelling, fevers, chills, lightheadedness. Objective Data Objective Data Vital Signs: Vital Signs Temp Pulse Resp BP Pulse Ox O2 Del Method 98.0 F 88 16 120/80 99 Room Air 08/29/22 09:02 08/29/22 09:02 08/29/22 09:02 08/29/22 09:02 08/29/22 02:14 08/29/22 09:02 Oxygen Delivery Method Room Air Weight: 209 lb 3.499 oz Body Mass Index (BMI) 34.8 Intake & Output: Intake and Output for Last 24 Hours 08/27/22 08/28/22 08/29/22 23:59 23:59 23:59 Intake Total 1795.42 / 1795.42 Output Total 1600 / 1600 Balance 1795.42 / 1795.42 -1600 / -1600 Lab / Micro Data Attestation: I reviewed the patient's lab results. Result Diagrams: 08/27/22 10:55 08/27/22 10:55 Micro: Microbiology 08/27/22 14:20 Nasal Secretion SARS-CoV-2 Antigen (Rapid) - Final ROS Constitutional Constitutional: Denies change in weight, fatigue, fever(s), headache(s), poor appetite or weakness Eyes Eyes: Denies blurry vision, change in vision, seeing flashes or spots in vision ENT HEENT: Denies dizziness, headache(s), loss taste/smell or sore throat Cardiovascular Cardiovascular: Denies chest pain, dizziness, dyspnea, irregular heart rhythm, leg edema, palpitations, rapid heart rate or vomiting Respiratory/Chest Respiratory/Chest: Denies chest tightness, cough, dyspnea or breast pain Gastrointestinal Gastrointestinal: Denies abdominal pain, anorexia, constipation, cramping, diarrhea, hemorrhoids, vomiting or weight changes Genitourinary Genitourinary: Denies dysuria, flank pain, genital lesions, genital pain, urinary frequency or urinary urgency Musculoskeletal Musculoskeletal: Denies back pain, difficulty walking, joint pain, limited range of motion, muscle cramps or numbness Integumentary Integumentary: Denies lesions or unusual bruising Neurologic Neurologic: Denies abnormal movements, abnormal speech, dizziness, numbness, seizure-like activity or syncope Psychiatric Psychiatric: Denies anxiety, behavioral changes, change in appetite, change in libido, cognitive impairment, confusion, depression, difficulty concentrating, hallucinations or suicidal thoughts Endocrine Endocrinology: Denies excessive sweating, polydipsia or polyuria Hematologic/Lymphatic Hematologic/Lymphatic: Denies easy bleeding, easy bruising or lymphadenopathy Allergic/Immunologic Allergic/Immunologic: Denies itchy eyes, lip swelling, seasonal rhinorrhea, rhinitis, throat swelling, tongue swelling, eczemia, wheezing or asthma Physical Exam Const alert and oriented x3 HEENT normocephalic Eyes PERRL Neck full ROM Resp normal respiratory effort Effort and Inspection: able to speak in complete sentences and symmetric chest movement GI soft to palpation GI Narrative: FF below U, normal lochia rubra Assessment & Plan (1) Vaginal delivery: COMMENT: 08/27/22 JAGDISH Almonte preE. JV PLAN: s/p PPD # 2 1. routine post delivery care 2. breast feeding- support given 3. rh positive 4. rubella immune (2) Severe pre-eclampsia: COMMENT: BP stable . (3) Gestational diabetes mellitus (GDM): COMMENT: diet controlled. s/pp endocrine cs. stable pp
[2022-08-29 14:18] VITALS: BP 120/76; PULSE 94; RESP 16; TEMP 36.6
[2022-08-29] MEDS: Acetaminophen 500 MG Tablet 1000 MG PO (14:38)
[2022-08-29 21:39] VITALS: BP 123/73; PULSE 74; RESP 16; TEMP 36.3; O2SAT 99
[2022-08-30 02:21] VITALS: BP 104/65; PULSE 78; RESP 14; TEMP 36.2; O2SAT 99
[2022-08-30 08:00] VITALS: BP 121/69; PULSE 78; RESP 16; TEMP 36.6; O2SAT 97
--- NOTE | 2022-08-30 08:29 | PCM.PN.OB ---
Subjective Subjective Patient doing well without complaints. Tolerating PO. Ambulating and voiding without difficulty. Feeding well. Denies chest pain, shortness of breath, calf pain/swelling, fevers, chills, lightheadedness. Objective Data Objective Data Vital Signs: Vital Signs Temp Pulse Resp BP Pulse Ox O2 Del Method 97.1 F L 78 14 104/65 99 Room Air 08/30/22 02:21 08/30/22 02:21 08/30/22 02:21 08/30/22 02:21 08/30/22 02:21 08/30/22 02:21 Oxygen Delivery Method Room Air Weight: 209 lb 3.499 oz Body Mass Index (BMI) 34.8 Intake & Output: Intake and Output for Last 24 Hours 08/28/22 08/29/22 08/30/22 23:59 23:59 23:59 Output Total 1600 / 1600 Balance -1600 / -1600 Lab / Micro Data Result Diagrams: 08/27/22 10:55 08/27/22 10:55 Micro: Microbiology 08/27/22 Unknown Genital vaginal Group B Streptococcus Culture - Final Group B Beta Streptococcus is not isolated. 08/27/22 14:20 Nasal Secretion SARS-CoV-2 Antigen (Rapid) - Final Physical Exam Const alert and oriented x3 General Appearance: cooperative HEENT normocephalic Eyes PERRL Neck full ROM Resp normal respiratory effort GI soft to palpation GI Narrative: FF below U Assessment & Plan (1) Vaginal delivery: COMMENT: 08/27/22 Suzy, IOL preE. JV (2) Severe pre-eclampsia: COMMENT: BP stable . (3) Gestational diabetes mellitus (GDM): COMMENT: diet controlled. s/pp endocrine cs. stable pp PLAN: Plan s/p PPD # 3 1. routine post delivery care 2. breast feeding- support given 3. rh positive 4. rubella immune 5. home today
--- NOTE | 2022-08-30 11:35 | PCM.DC.SUM ---
Providers Date of Admission: 08/27/22 Primary Care Physician: No Primary Care Phys Reason For Visit: VAG DELIVERY Diagnosis Discharge Diagnosis (1) Vaginal delivery: Status: Acute Code(s): O80 - Encounter for full-term uncomplicated delivery (2) Severe pre-eclampsia: Status: Acute Code(s): O14.10 - Severe pre-eclampsia, unspecified trimester (3) Gestational diabetes mellitus (GDM): Status: Acute Code(s): O24.419 - Gestational diabetes mellitus in , unspecified control Plan s/p PPD # 3 1. routine post delivery care 2. breast feeding- support given 3. rh positive 4. rubella immune 5. home today Medications at Discharge Home Medications prenat.vits,leroy,qbc-gfwe-ibokr 1 tab PO DAILY 01/29/22 aspirin 81 mg chewable tablet 81 mg PO DAILY 07/05/22 blood sugar diagnostic (Accu-Chek Guide test strips) 07/12/22 blood-glucose meter (Accu-Chek Guide Me Glucose Meter) 07/12/22 docusate sodium 100 mg capsule (Colace) 100 mg PO BID 07/12/22 Hospital Course Operations - (vaginal delivery) Summary of Care Provided Hospital Course: Gestational diabetic, severe Pre eclampsia, induction of labor. Normal vaginal bleeding. Had some pp wheezing, CXR normal and resolved. Normal pp care Weight / BMI Weight Weight: 209 lb 3.499 oz Body Mass Index (BMI) 34.8 ABG / Lab / Microbiology Data Result Diagrams: 08/27/22 10:55 08/27/22 10:55 Microbiology: Microbiology 08/27/22 Unknown Genital vaginal Group B Streptococcus Culture - Final Group B Beta Streptococcus is not isolated. 08/27/22 14:20 Nasal Secretion SARS-CoV-2 Antigen (Rapid) - Final D/C Instructions Discharge Diet: No restrictions May resume sexual activity in: 4-6 weeks Call your doctor if your incision/area has: Continuous Slow Oozing, Sudden Increased Bleeding, Increased Pain/ Swelling, Increased Redness and Foul Smelling Discharge Please Follow Up With: Tayla Khan DO When: Call [phone] to make an appointment with your doctor in 6 weeks. If you had elevated blood pressure or 4th degree laceration, you will need to be seen in 2 weeks. Meaningful Use Info Meaningful Use Diagnoses (Choose all that apply): None applicable Discharge Plan Admission Admit Date/Time: 08/27/22 13:40 Attending Provider: Tayla Khan Primary Care Provider: Care PhysicianLorie Primary Discharge Orders/Prescriptions Prescriptions: No Action prenat.vits,leroy,qyi-recb-mhqej Tablet 1 tab PO DAILY aspirin 81 mg tablet,chewable 81 mg PO DAILY (DME) Accu-Chek Guide test strips Strip See Rx Instructions .Route Rx Instructions: As directed (DME) blood-glucose meter [Accu-Chek Guide Me Glucose Mtr] [facility] See Rx Instructions .Route Rx Instructions: As directed docusate sodium [Colace] 100 mg capsule 100 mg PO BID Referrals / Follow Up: Care Physician,No Primary [Primary Care Provider] - Disposition Disposition (needs filled in before D/C Order can be placed): Home, Self Care
[2022-08-30 12:30] VITALS: BP 131/86; PULSE 91; RESP 14; TEMP 36.4; O2SAT 100
== END 2022-08-30 12:50 | disposition home or self-care (01) | DRG 807 ==
LOC: WPOUT 13:45 → WP 13:45
PROVIDERS: Registered Nurse; Admitting Provider Obstetrics & Gynecology; Visit Provider Obstetrics & Gynecology
DX: O14.14 Severe pre-eclampsia complicating childbirth (principal); Z37.0 Single live birth; O23.43 Unspecified infection of urinary tract in pregnancy, third trimester; Z3A.35 35 weeks gestation of pregnancy; O70.0 First degree perineal laceration during delivery; Z79.82 Long term (current) use of aspirin; O24.420 Gestational diabetes mellitus in childbirth, diet controlled
CPT/HCPCS: 59025; 59050; 76815; 82565; 82570; 82962; 84156; 84450; 84460; 84550; 85027; 86850; 86900; 86901; 87081; 87426; 87653; 99218; J7120; A4216; G0378; J0702

== ENCOUNTER → 2022-10-16 | Outpatient (CLI) | payer OTHER, SELFPAY ==
[2022-10-25 21:58] LABS: HPV Reflexed? NOT INDICATED
== END | disposition home or self-care (01) ==
LOC: LABSPEC 15:01
PROVIDERS: Referring Provider Obstetrics & Gynecology; Visit Provider Obstetrics & Gynecology
DX: Z12.4 Encounter for screening for malignant neoplasm of cervix (principal)
CPT/HCPCS: 88175; G0145

== ENCOUNTER → 2024-03-14 | Outpatient (CLI) | payer MEDICAID, SELFPAY ==
[2024-03-14 11:57] LABS: hCG Titer Quant., Serum 42085 mIU/mL (1-3)
== END | disposition home or self-care (01) ==
LOC: LAB 10:26
PROVIDERS: Referring Provider Advanced Practice Midwife; Visit Provider Advanced Practice Midwife
DX: N91.2 Amenorrhea, unspecified (principal)
CPT/HCPCS: 36415; 84702

== ENCOUNTER → 2024-03-16 | Outpatient (CLI) | payer MEDICAID, SELFPAY ==
[2024-03-16 11:28] LABS: hCG Titer Quant., Serum 52175 mIU/mL (1-3)
== END | disposition home or self-care (01) ==
LOC: PAVLAB 10:24
PROVIDERS: Referring Provider Advanced Practice Midwife; Visit Provider Advanced Practice Midwife
DX: N91.2 Amenorrhea, unspecified (principal)
CPT/HCPCS: 36415; 84702

== ENCOUNTER → 2024-03-18 | Outpatient (CLI) | payer MEDICAID, SELFPAY ==
--- NOTE | 2024-03-18 09:39 | US_ITS ---
HISTORY: viability. LMP 01/22/2024. TECHNIQUE: Transvaginal pelvic ultrasound was performed. 68 images. COMPARISON: None. FINDINGS: UTERUS: 10.4 x 6 x 6 cm. ENDOMETRIAL COMPLEX: 2.3 cm saclike structure without yolk sac or pole. 1.1 x 1.8 x 2.6 cm adjacent heterogeneous fluid collection. RIGHT OVARY: 1.3 x 1.4 x 2.2 cm. No adnexal masses. LEFT OVARY: 1.6 x 1.9 x 2.4 cm. 1.5 x 1.5 x 1.6 cm complex lesion. FREE FLUID: None. US/Transvaginal w/Preg US IMPRESSION: Probable intrauterine without yolk sac or pole at this time. Small adjacent perigestational hemorrhage. Recommend correlation with serial beta hCG levels and follow-up ultrasound to assess viability and to exclude ectopic or spontaneous miscarriage. 1.6 cm left ovarian lesion, which may represent a corpus luteal cyst or small solid lesion. Recommend follow-up. Electronically Signed: Sis Oswald MD at 10:43 EDT ,
== END | disposition home or self-care (01) ==
LOC: US 09:35
PROVIDERS: Referring Provider Advanced Practice Midwife; Visit Provider Advanced Practice Midwife
DX: Z34.90 Encounter for supervision of normal pregnancy, unspecified, unspecified trimester (principal)
CPT/HCPCS: 76817

== ENCOUNTER → 2024-03-19 | Outpatient (CLI) | payer MEDICAID, SELFPAY ==
[2024-03-19 11:38] LABS: hCG Titer Quant., Serum 73185 mIU/mL (1-3)
== END | disposition home or self-care (01) ==
LOC: LAB 09:47
PROVIDERS: Obstetrics & Gynecology; Referring Provider Advanced Practice Midwife; Visit Provider Advanced Practice Midwife
DX: Z34.90 Encounter for supervision of normal pregnancy, unspecified, unspecified trimester (principal)
CPT/HCPCS: 36415; 84702

== ENCOUNTER → 2024-03-21 | Outpatient (CLI) | payer MEDICAID, SELFPAY ==
[2024-03-21 10:54] LABS: hCG Titer Quant., Serum 78857 mIU/mL (1-3)
== END | disposition home or self-care (01) ==
LOC: LAB 09:39
PROVIDERS: Obstetrics & Gynecology; Referring Provider Advanced Practice Midwife; Visit Provider Advanced Practice Midwife
DX: Z34.90 Encounter for supervision of normal pregnancy, unspecified, unspecified trimester (principal)
CPT/HCPCS: 36415; 84702

== ENCOUNTER → 2024-03-23 | Outpatient (CLI) | payer MEDICAID, SELFPAY ==
[2024-03-23 14:56] LABS: hCG Titer Quant., Serum 82234 mIU/mL (1-3)
== END | disposition home or self-care (01) ==
LOC: LAB 12:17
PROVIDERS: Referring Provider Obstetrics & Gynecology; Visit Provider Obstetrics & Gynecology
DX: Z34.90 Encounter for supervision of normal pregnancy, unspecified, unspecified trimester (principal)
CPT/HCPCS: 36415; 84702

== ENCOUNTER → 2024-03-25 | Outpatient (CLI) | payer MEDICAID, SELFPAY ==
--- NOTE | 2024-03-25 15:22 | US_ITS ---
INDICATION: viability EXAMINATION: Ultrasound US OB Transvaginal TECHNIQUE: Transvaginal pelvic ultrasound was performed. Grayscale and color flow Doppler evaluation of the adnexa. COMPARISON: March 18, 2024. LMP: [01/22/2024 correlating with 9 weeks 0 days gestation estimated delivery date October 28, 2024 Beta-hCG: Unknown FINDINGS: UTERUS: Anteverted uterus 11.1 x 5.8 x 6.7cm with unremarkable myometrium. Cervix is long and closed.. RIGHT OVARY: 1.9 x 2.8 x 1.6 cm with normal small follicles and color flow . LEFT OVARY: 3.0 x 1.6 x 3.9 cm with normal small follicles and color flow . FREE FLUID: None. INTRAUTERINE GESTATIONAL SAC(s) (size/shape): Single fundal gestational sac with normal shape . YOLK SAC: Not seen POLE: Not seen ESTIMATED GESTATION AGE: Mean sac diameter 3.2 cm correlating with 8 weeks 3 days gestation and estimated delivery date November 01, 2024. HEART MOTION: N/A PLACENTA: NA SUBCHORIONIC HEMORRHAGE: Small perigestational hemorrhage involving approximately 25% sac circumference.. AMNIOTIC FLUID: Qualitatively normal. US/Transvaginal w/Preg US IMPRESSION: Further enlargement of gestational sac to 32 mm mean sac diameter without visible yolk sac or pole compatible with failed and blighted ovum. Cervix remains long and closed Redemonstration of prior gestational hemorrhage Normal ovaries Electronically Signed: Shady Umana MD at 18:34 EDT ,
== END | disposition home or self-care (01) ==
LOC: US 15:20
PROVIDERS: Referring Provider Obstetrics & Gynecology; Visit Provider Obstetrics & Gynecology
DX: Z34.90 Encounter for supervision of normal pregnancy, unspecified, unspecified trimester (principal)
CPT/HCPCS: 76817

== ENCOUNTER 2024-03-27 09:31 | Day surgery (SDC) | payer MEDICAID, SELFPAY ==
[2024-03-27] VITALS (7 sets, daily range): BP systolic 101–122; BP diastolic 67–81; PULSE 72–90; RESP 16–17; TEMP 36.2–36.8; O2SAT 100; BMI 30.2
--- NOTE | 2024-03-27 | POC_PTH ---
PATIENT: MARYSOL TAPIA LOC: [facility] [place] U[place][id number] AGE/SX: 23/ ROOM: RE03/27/[address]: Dr. Tayla Khan DO : 2000 BED: DIS: 03/27/2024 SPEC #: [id number] RECD: 03/27/24 13:28 STATUS: JAKE VINCE #: [id number] LUÍS: 03/27/24 00:[address]: Tayla Khan DEPT: SURGICAL PATHOLOGY RECD BY: Kurt Kenyon ENTERED: 03/27/24 13:28 SP TYPE: PROD CONC OTHR DR: No Primary Care Phys Tissues: Product of conception, NOS Procedures: Surgery Specimen Level IV HEADER OPERATION: D&C, suction PRE-OP DIAGNOSIS: Missed TISSUE SUBMITTED: Products of conception MICROSCOPIC DIAGNOSIS Endometrium, curettage: Chorionic villi, decidualized stroma and trophoblastic cells consistent with products of conception. See comment. AM: 03/31/2024 COMMENT Minimal hydrophic change of villi is present. Clinical correlation is suggested. MICROSCOPIC DESCRIPTION Slides are reviewed. GROSS DESCRIPTION Received in fixative is one container labeled with the patient's name and designated Products of conception. The specimen consists of multiple irregular fragments of red-lim soft tissue measuring in aggregate 8.0 x 5.0 x 0.7cm. parts are not grossly recognized. Relay Tester portions are submitted in one cassette. AM/mr 03/27/24 TC:5 CPT:17675
--- NOTE | 2024-03-27 09:36 | HP.PCM_ITS ---
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 Required: No Is patient in pain?: No Allergies No Known Allergies Allergy (Verified 03/26/24 09:58) Post menopausal: No Patient : No : No PFSH Medical History Vaginal delivery Surgical History History of tonsillectomy and adenoidectomy Family History Father DiabetesBrother Cancer hogkins lymphoma Grandmother DiabetesGrandfather CVA (cerebral vascular accident) Myocardial infarction ALS (amyotrophic lateral sclerosis) Social History adopted: No household members: spouse and children number of children: 2 current occupational status: unemployed current occupation: [employer] pets and animals: Yes pets and animals: dog(s) history of recent travel: No sexually active: Yes Smoking Status: Never smoker alcohol intake: never substance use type: does not use well-balanced diet: daily or most days caffeine: No eating out: 1-3 times/week during the past year weight has: decreased > 10 lbs what type of physical activity do you participate in: walking frequency: 1-2 times per week duration: 30-45 minutes/day jayme/mandaeism: Denominational seatbelt use: always do you feel safe at home: Yes additional social history: Spouse:LbDaquan in [place] patient is a sah HPI PER Details: MARYSOL TAPIA is a 23 year old who presents for early miscarriage. She has a blighted ovum measuring 25 mm no vb abnormal discharge, has all symptoms, no yolk sac or pole seen. Female Reproductive History Menopausal Symptoms: No night sweats History 3 Elective abortions Hx Para 2 Spontaneous abortions Hx # Term Pregnancies Ectopic pregnancies Hx # Pregnancies Multiple births # of living children 2 Past Pregnancies Del. Date Name GA/Weeks Outcome Route Bth Weight Gen Labor Lgth Anesthesia Del Locatn Provider FOB Unknown 06/29/21 Sergey 37 live - full term 7# 2 Male 1 1 hour epidural [place] Lb 08/27/22 Suzy 35 live - 5lbs 7oz Fe male epidural [facility] Tayla Brannon Delivery Date: Last Updated by: Kim Carter MEDICAL CUSTOMER SERVICE REPRESENTATIVE, MEDICAL CUSTOMER SERVICE REPRESENTATIVE-C IOL at 37 wk due to Pre E; moved to [place] December 2021 Delivery Date: 08/27/22 Last Updated by: Clau Alarcon see problem list for complications. ROS Const Constitutional: Denies fatigue, night sweats, weight gain or weight loss ENT ENT: Reports system reviewed and no additional complaints, except as documented Cardio Card: Denies chest pain Resp Resp: Denies cough or dyspnea GI GI: Reports as per HPI; Denies abdominal pain, constipation, nausea or vomiting : Denies nipple discharge, urinary frequency, urinary incontinence, urinary hesitancy, urinary urgency, vaginal discharge, vaginal dryness, vaginal odor or vaginal pruritus Musc Musc: Denies arthralgias, back pain or muscle weakness Skin Skin/Breast: Denies alopecia, change in hair, dry skin, breast mass, breast pain, breast skin changes or nipple discharge Neuro Neuro: Reports system reviewed and no additional complaints, except as documented Psych Psych: Reports system reviewed and no additional complaints, except as documented Endo Endo: Denies cold intolerance, excessive sweating, heat intolerance or polydipsia Dustin/Lymph Hematologic/Lymphatic: Denies easy bleeding, Denies easy bruising and Denies lymphadenopathy Exam Const General: cooperative, healthy appearing, comfortable and no acute distress Orientation: alert [facility] Head: normal to inspection and normocephalic Ears: hearing grossly normal bilaterally and external ears normal Nose: external nose normal and nares normal Face and sinus: normal facial exam Neck Neck: normal visual inspection and no lymphadenopathy Thyroid: thyroid normal Chest Chest palpation & inspection: normal inspection of the chest GI Inspection: normal to inspection and non-distended Palpation: soft and no hepatosplenomegaly Musc Other: gross motor intact no deficits, full bilateral strength Skin General: no rashes or lesions noted Neuro General: patient alert, patient awake, moves all extremities and no focal motor deficits Motor: muscle tone normal throughout Extrem General: normal to inspection and no pedal edema Psych Appearance: grossly normal Mental Status: mental status grossly normal Affect: normal affect Speech and Movement: speech and movement normal Coding Level of Care Code Off vis,est,level 4 Diagnoses Missed O02.1 Assessment and Plan Assessment and Plan (1) Missed : Status: Acute Comment: counseled and plan suction d and c Plan After discussing the patient's diagnosis and treatment plan options, patient wishes to proceed with surgical management. I have discussed with the patient the risks, benefits, and alternatives of the procedure which include but are not limited to risks of anesthesia, bleeding, infection, possible damage to bowel, bladder, or surrounding vasculature which could lead to additional surgery to evaluate any complications. Patient agrees to procedure and wishes to proceed. ACOG/uptodate references given for additional information regarding procedure. plan is for suction dilation and curettage
[2024-03-27] MEDS: Lactated Ringers 1,000 ML 15 ML IV (10:04)
[2024-03-27 10:13] LABS: Hematocrit 39.4 % (37-47); Hemoglobin 12.6 g/dL (12.0-15.0); Mean Corpuscular Hgb 25.9 pg (27.0-32.0); Mean Corpuscular Volume 81.1 fL (81-99); Platelet Count 329 K/mm3 (150-450); RBC Distribution Width SD 40.8 fl (35.1-43.9); Red Blood Count 4.86 M/mm3 (4.2-5.4); White Blood Count 10.4 K/mm3 (4.4-11.0)
--- NOTE | 2024-03-27 11:21 | PCM.DC ---
Discharge Instructions Diet Discharge Diet: No restrictions Activity Discharge Activity: Return to Normal Activity, May Shower and May Take a Tub Bath (after 1 week) May resume sexual activity in: 1-2 weeks Weight Bearing Status: Weight bearing as tolerated Lifting Restrictions: none Dressing / Incision Call your doctor if you observe: Fever of 101 or Higher, Using more than 1 pad per hour, Shortness of breath and Uncontrolled pain Follow Up Care Please Follow Up With: Tayla Khan DO When: Call [phone] to schedule appointment. Test Results: Test results from this visit will be discussed in further detail at your follow-up appointment, if applicable. Discharge Plan Admission Primary Reason for Your Visit: D&C Attending Provider: Tayla Khan Primary Care Provider: Care PhysicianLorie Primary Instructions Print Language: Spanish Discharge Orders/Prescriptions Prescriptions: New ibuprofen 800 mg tablet 800 mg PO Q8H PRN (Reason: pain) Qty: 30 0RF No Action Prenatabs FA 29-1 mg tablet 1 tab PO DAILY Referrals / Follow Up: Care Physician,Lorie Primary [Primary Care Provider] - Disposition Disposition (needs filled in before D/C Order can be placed): Home, Self Care
[2024-03-27] MEDS: Cefotetan 2 GM in 0.9% NS 100 ML IV (11:25)
[2024-03-27] MEDS: Lidocaine 1% (20 ml mdv) 20 ML Vial (11:38)
--- NOTE | 2024-03-27 13:11 | OP.PCM_ITS ---
Problems Associated Problem List Diagnoses (1) Missed : Report of Operation Date of Procedure: 03/27/24 Pre-Operative Diagnosis: 8 weeks missed Post-Operative Diagnosis: 8 weeks missed Surgery/Procedure Performed:: suction dilation and curettage Surgeon: Tayla Khan clinical social worker: None Type of Anesthesia: MAC and Topical Anesth Specimen's removed: endometrial curetting's Drains: none Estimated Blood Loss (mL): 30cc Complications Patient was taken to the operating room and placed under MAC local anesthesia. She was prepped and draped in the normal sterile fashion the dorsal lithotomy position. Bladder was drained of clear urine and anterior lip of the cervix was grasped and the uterus sounded to 10 cm. Cervix was progressively dilated to allow passage of a size 8 suction curette. Progressive passes were made removing the retained products of conception without complication. Sharp curettage confirmed complete removal of the retained products. All instruments were removed from the vagina and excellent hemostasis was noted and the patient was taken to recovery in stable condition. Admit VTE Documentation VTE Present on Admission: No VTE Mechan Device Prophylaxis: SCD's Multi Select Codes Urinary/Genital Urinary/Genital CPT Codes: 20380 Surg Trtmt missed Ab 1TM
== END 2024-03-27 13:25 | disposition home or self-care (01) ==
LOC: SDC 09:32 → AC 09:32
PROVIDERS: Referring Provider Obstetrics & Gynecology; Visit Provider Obstetrics & Gynecology
PROC: (CPT 59820; principal; 2024-03-27 10:45)
DX: O02.1 Missed abortion (principal)
CPT/HCPCS: 59820; 01965; 85027; 86850; 86900; 86901; 88305; J7120; J2405

== ENCOUNTER → 2024-10-07 | Outpatient (CLI) | payer MEDICAID, SELFPAY ==
[2024-10-07 13:44] LABS: hCG Titer Quant., Serum 66 mIU/mL (1-3)
== END | disposition home or self-care (01) ==
LOC: PAVLAB 13:00
PROVIDERS: Referring Provider Obstetrics & Gynecology; Visit Provider Obstetrics & Gynecology
DX: Z34.90 Encounter for supervision of normal pregnancy, unspecified, unspecified trimester (principal)
CPT/HCPCS: 36415; 84702

== ENCOUNTER → 2024-10-09 | Outpatient (CLI) | payer MEDICAID, SELFPAY ==
[2024-10-09 14:19] LABS: hCG Titer Quant., Serum 52 mIU/mL (1-3)
== END | disposition home or self-care (01) ==
LOC: BWCLAB 13:06
PROVIDERS: Obstetrics & Gynecology; Referring Provider Obstetrics & Gynecology; Visit Provider Obstetrics & Gynecology
DX: Z34.90 Encounter for supervision of normal pregnancy, unspecified, unspecified trimester (principal)
CPT/HCPCS: 36415; 84702

== ENCOUNTER → 2024-10-15 | Outpatient (CLI) | payer MEDICAID, SELFPAY ==
[2024-10-15 17:34] LABS: Absolute Lymphocyte Count 3.46 X10^3/uL (0.83-4.51); Absolute Neutrophil Count 4.5 X10^3/uL (2.0-7.7); Basophil# 0.05 X10^3/uL; Basophil% 0.6 % (0-1); Eosinophil# 0.11 X10^3/uL; Eosinophils% 1.2 % (0-5); Hematocrit 42.7 % (37-47); Hemoglobin 13.7 g/dL (12.0-15.0); Lymphocyte # 3.46 X10^3/ul (0.83-4.51); Lymphocyte % 39.3 % (19-41); Mean Corp Hgb Conc 32.1 g/dL (32-36); Mean Corpuscular Hgb 26.4 pg (27.0-32.0); Mean Corpuscular Volume 82.3 fL (81-99); Mean Platelet Vol. 9.3 fl (6.2-12.0); Monocyte% 7.9 % (0-10); NRBC Flagged by Analyzer 0 % (0-5); Neutrophil # 4.47 X10^3/uL (2.7-7.7); Neutrophil % 50.8 % (47-70); Platelet Count 354 K/mm3 (150-450); RBC Distribution Width CV 13.8 % (11.6-14.6); RBC Distribution Width SD 41.1 fl (35.1-43.9); Red Blood Count 5.19 M/mm3 (4.2-5.4); White Blood Count 8.8 K/mm3 (4.4-11.0)
[2024-10-15 17:39] LABS: hCG Titer Quant., Serum 2 mIU/mL (1-3)
[2024-10-15 18:01] LABS: Hemoglobin A1c 5.1 % (3.8-5.6)
== END | disposition home or self-care (01) ==
LOC: BWCLAB 16:32
PROVIDERS: Referring Provider Obstetrics & Gynecology; Visit Provider Obstetrics & Gynecology
DX: N96 Recurrent pregnancy loss (principal); O03.9 Complete or unspecified spontaneous abortion without complication
CPT/HCPCS: 36415; 83036; 84443; 84702; 85025

== ENCOUNTER → 2024-10-23 | Outpatient (CLI) | payer MEDICAID, SELFPAY ==
--- NOTE | 2024-10-23 12:49 | US_ITS ---
STUDY: ULTRASOUND OF THE FEMALE PELVIS - COMPLETE REASON FOR EXAM: Female, 24 years old. miscarriage a few weeks ago TECHNIQUE: Transvaginal and transabdominal imaging. COMPARISON: None. FINDINGS: The uterus is anteverted and is in a midline position. The uterus measures 7.9 cm. Normal uterine cervix. The endometrium measures 8 mm in thickness, and is hyperechoic. There is no demonstrated endometrial mass. There is no demonstrated myometrial mass. I.U.D. - The patient does not have an I.U.D. The right ovary is visualized. The right ovary measures 2.7 cm. There is no right ovarian cyst or ovarian mass. There is no visualized right adnexal mass or complex lesion. There is normal arterial and normal venous vascularity. The left ovary is visualized. The left ovary measures 2.9 cm. There is no left ovarian cyst or ovarian mass. There is no visualized left adnexal mass or complex lesion. There is normal arterial and normal venous vascularity. There is minimal fluid in the cul-de-sac. Urinary bladder volume is (in cc) 400 . US/Pelvic w/ Transvaginal IMPRESSION: Trace free fluid in the pelvis. Electronically Signed: Alexi Birmingham MD at 22:00 EST ,
== END | disposition home or self-care (01) ==
LOC: US 12:45
PROVIDERS: Referring Provider Obstetrics & Gynecology; Visit Provider Obstetrics & Gynecology
DX: N96 Recurrent pregnancy loss (principal)
CPT/HCPCS: 76830; 76856

== ENCOUNTER → 2024-11-16 | Outpatient (CLI) | payer MEDICAID, SELFPAY ==
[2024-11-16 13:27] LABS: hCG Titer Quant., Serum 106 mIU/mL (1-3)
== END | disposition home or self-care (01) ==
LOC: BWCLAB 08:41
PROVIDERS: Referring Provider Obstetrics & Gynecology; Visit Provider Obstetrics & Gynecology
DX: Z34.90 Encounter for supervision of normal pregnancy, unspecified, unspecified trimester (principal)

== ENCOUNTER → 2024-11-18 | Outpatient (CLI) | payer MEDICAID, SELFPAY ==
[2024-11-18 11:05] LABS: hCG Titer Quant., Serum 213 mIU/mL (1-3)
== END | disposition home or self-care (01) ==
LOC: BWCLAB 09:21
PROVIDERS: Referring Provider Obstetrics & Gynecology; Visit Provider Obstetrics & Gynecology
DX: Z34.90 Encounter for supervision of normal pregnancy, unspecified, unspecified trimester (principal)
CPT/HCPCS: 36415; 84702

== ENCOUNTER → 2024-12-03 | Outpatient (CLI) | payer MEDICAID, SELFPAY ==
--- NOTE | 2024-12-03 09:25 | US_ITS ---
PROCEDURE: TRANSVAGINAL W/PREG US REASON FOR EXAM: well-being. COMPARISON: None. FINDINGS: LMP: October 13, 2024. Comments: Transvaginal imaging was performed Number of Gestational Sacs: 1 Gestational Sac Shape: Normal Number of Fetuses: 1 Heart Rate: 119 (average) Survey of Visible Anatomic Structures: Grossly unremarkable for gestational age. Nasal Bones: Not visualized Yolk Sac: Present and unremarkable. Placenta: Presently not well-visualized Amniotic Fluid Volume: Subjectively normal for gestational age. Uterine Abnormalities: Maternal uterus is unremarkable. Ovaries / Adnexa: The right ovary measures 3.3 cm x 2 cm x 2 cm. The left ovary measures 2.5 cm x 2.8 cm x 2.4 cm. There is a 2 cm x 2 cm x 1.7 cm resolving corpus luteum cyst. DIMENSIONS: Parameter Measurement / EGA [facility] Rump Length: 4 mm/6 weeks and 2 days Gestational Sac: 1.6 cm/6 weeks and 3 days Yolk Sac: 4 mm/ ESTIMATED GESTATIONAL AGE: By Ultrasound: 6 weeks and 3 days By LMP: 7 weeks and 2 days ESTIMATED DATE OF DELIVERY: By Ultrasound: July 26, 2025 By LMP: July 20, 2025 US/Transvaginal w/Preg US IMPRESSION: Single live intrauterine gestation with a mean gestational age of 6 weeks and 3 days. Reading Location: [facility]-
== END | disposition home or self-care (01) ==
LOC: US 09:22
PROVIDERS: Referring Provider Obstetrics & Gynecology; Visit Provider Obstetrics & Gynecology
DX: N96 Recurrent pregnancy loss (principal)
CPT/HCPCS: 76817

== ENCOUNTER → 2024-12-17 | Outpatient (CLI) | payer MEDICAID, SELFPAY ==
[2024-12-17 15:04] LABS: Protein, Urine (Random) 18.3 mg/dL (<11.9); Protein:Creat Ratio 126 mg/g CRE (0-200)
[2024-12-21 20:07] LABS: Chlamydia By Nucleic Acid AMP Negative (Negative); Gonococcus By Nucleic Acid AMP Negative (Negative)
[2024-12-23 07:58] LABS: HPV Reflexed? NOT INDICATED
== END | disposition home or self-care (01) ==
LOC: LABSPEC 14:40
PROVIDERS: Referring Provider Advanced Practice Midwife; Visit Provider Advanced Practice Midwife
DX: O09.90 Supervision of high risk pregnancy, unspecified, unspecified trimester (principal); Z3A.00 Weeks of gestation of pregnancy not specified; Z12.4 Encounter for screening for malignant neoplasm of cervix
CPT/HCPCS: 82570; 84156; 87086; 87088; 87491; 87591; 88175; G0145

== ENCOUNTER → 2024-12-29 | Outpatient (CLI) | payer MEDICAID, SELFPAY ==
[2024-12-29 15:22] LABS: Absolute Lymphocyte Count 2.96 X10^3/uL (0.83-4.51); Absolute Neutrophil Count 8.1 X10^3/uL (2.0-7.7); Basophil# 0.02 X10^3/uL; Basophil% 0.2 % (0-1); Eosinophil# 0.13 X10^3/uL; Eosinophils% 1.1 % (0-5); Hematocrit 39.7 % (37-47); Lymphocyte # 2.96 X10^3/ul (0.83-4.51); Lymphocyte % 25.3 % (19-41); Mean Corp Hgb Conc 32.7 g/dL (32-36); Mean Corpuscular Volume 82.4 fL (81-99); Mean Platelet Vol. 9.4 fl (6.2-12.0); Monocyte# 0.45 X10^3/uL; Monocyte% 3.9 % (0-10); NRBC Flagged by Analyzer 0 % (0-5); Neutrophil # 8.08 X10^3/uL (2.7-7.7); Neutrophil % 69.2 % (47-70); Platelet Count 341 K/mm3 (150-450); RBC Distribution Width CV 13.9 % (11.6-14.6); RBC Distribution Width SD 41.3 fl (35.1-43.9); Red Blood Count 4.82 M/mm3 (4.2-5.4); White Blood Count 11.7 K/mm3 (4.4-11.0)
[2024-12-29 20:33] LABS: ALB/GLOB Ratio 1.2 RATIO (0.9-2.4); AST(SGOT) 16 U/L (<=31); Alanine Aminotransfer ALT/SGPT 18 U/L (<=34); Alkaline Phosphatase 72 U/L (35-104); Anion Gap 14 (5-15); BUN 12 mg/dL (4-19); BUN/Creat Ratio 21.7 RATIO (10-20); Carbon Dioxide 18.8 mmol/L (22.0-29.0); Chloride 104 mmol/L (96-108); Creatinine, Serum 0.5 mg/dL (0.6-1.0); EST Glomerular Filtration Rate 132 (>60); Globulin 3.3 g/dL (2.2-4.2); Glucose 126 mg/dL (70-99); Potassium 3.9 mmol/L (3.3-5.1); Protein, Total 7.3 g/dL (5.9-8.4); Sodium Level 137 mmol/L (133-145); Total Bilirubin 0.48 mg/dL (0.00-1.30)
[2024-12-30 12:28] LABS: Hepatitis B Surface Antigen Nonreactive (Nonreactive); Hepatitis C Antibody Nonreactive (Nonreactive); Rubella IgG Reactive (Nonreactive); Syphilis Antibodies Nonreactive
[2024-12-31 19:11] LABS: HIV Nonreactive (Nonreactive)
== END | disposition home or self-care (01) ==
LOC: BWCLAB 13:18
PROVIDERS: Referring Provider Advanced Practice Midwife; Visit Provider Advanced Practice Midwife
DX: Z34.81 Encounter for supervision of other normal pregnancy, first trimester (principal)
CPT/HCPCS: 36415; 80053; 83036; 85025; 86703; 86762; 86780; 86803; 86850; 86900; 86901; 87340

== ENCOUNTER → 2025-03-11 | Outpatient (CLI) | payer MEDICAID, SELFPAY | END | disposition home or self-care (01) | LOC: LABSPEC 14:23 | PROVIDERS: Referring Provider Obstetrics & Gynecology; Visit Provider Obstetrics & Gynecology | DX: O26.899 Other specified pregnancy related conditions, unspecified trimester (principal); R39.15 Urgency of urination; Z3A.00 Weeks of gestation of pregnancy not specified | CPT/HCPCS: 87086; 87088 ==

== ENCOUNTER → 2025-03-16 | Outpatient (CLI) | payer MEDICAID, SELFPAY | END | disposition home or self-care (01) | LOC: LABSPEC 14:11 | PROVIDERS: Referring Provider Obstetrics & Gynecology; Visit Provider Obstetrics & Gynecology | DX: R39.15 Urgency of urination (principal) | CPT/HCPCS: 87086; 87088 ==

== ENCOUNTER → 2025-04-12 | Outpatient (CLI) | payer MEDICAID, SELFPAY ==
[2025-04-12 12:14] LABS: Absolute Lymphocyte Count 2.62 X10^3/uL (0.83-4.51); Absolute Neutrophil Count 7.5 X10^3/uL (2.0-7.7); Basophil# 0.03 X10^3/uL; Basophil% 0.3 % (0-1); Eosinophils% 0.9 % (0-5); Hematocrit 38.4 % (37-47); Hemoglobin 12.4 g/dL (12.0-15.0); Lymphocyte # 2.62 X10^3/ul (0.83-4.51); Lymphocyte % 24.3 % (19-41); Mean Corp Hgb Conc 32.3 g/dL (32-36); Mean Corpuscular Hgb 27.4 pg (27.0-32.0); Mean Corpuscular Volume 84.8 fL (81-99); Mean Platelet Vol. 9.4 fl (6.2-12.0); Monocyte# 0.43 X10^3/uL; NRBC Flagged by Analyzer 0 % (0-5); Neutrophil # 7.46 X10^3/uL (2.7-7.7); Neutrophil % 69.4 % (47-70); Platelet Count 318 K/mm3 (150-450); RBC Distribution Width CV 14.6 % (11.6-14.6); RBC Distribution Width SD 44.4 fl (35.1-43.9); Red Blood Count 4.53 M/mm3 (4.2-5.4); White Blood Count 10.8 K/mm3 (4.4-11.0)
[2025-04-12 13:16] LABS: ALB/GLOB Ratio 1.2 RATIO (0.9-2.4); AST(SGOT) 15 U/L (<=31); Alanine Aminotransfer ALT/SGPT 11 U/L (<=34); Albumin, Serum 3.9 g/dL (3.5-5.0); Alkaline Phosphatase 80 U/L (35-104); Anion Gap 14 (5-15); BUN 13 mg/dL (4-19); BUN/Creat Ratio 18.3 RATIO (10-20); Calcium,Total 9.8 mg/dL (7.6-11.0); Carbon Dioxide 19.1 mmol/L (21.0-32.0); Chloride 105 mmol/L (98-108); Creatinine, Serum 0.69 mg/dL (0.70-1.20); EST Glomerular Filtration Rate 124 (>60); Globulin 3.2 g/dL (2.2-4.2); Glucose 124 mg/dL (70-99); Glucose Challenge Gest 1H 50g 124 mg/dL (70-140); HIV Nonreactive (Nonreactive); Potassium 3.5 mmol/L (3.3-5.1); Protein, Total 7.2 g/dL (5.9-8.4); Sodium Level 138 mmol/L (133-145); Syphilis Antibodies Nonreactive (Nonreactive); Total Bilirubin 0.42 mg/dL (0.00-1.30)
== END | disposition home or self-care (01) ==
PROVIDERS: Referring Provider Obstetrics & Gynecology; Visit Provider Obstetrics & Gynecology
DX: O09.292 Supervision of pregnancy with other poor reproductive or obstetric history, second trimester (principal); Z13.1 Encounter for screening for diabetes mellitus; Z3A.00 Weeks of gestation of pregnancy not specified
CPT/HCPCS: 36415; 80053; 82950; 85025; 86703; 86780